=== PATIENT | male | born 2000 | race Caucasian/White ===

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

== ENCOUNTER 2019-05-03 15:33 | Emergency (ER) | payer BC ==
[2019-05-03 15:40] VITALS: TEMP 98.3
[2019-05-03] MEDS ORDERED: ALBUTEROL NEBULIZED 2.5 MG/3 ML INHALATION STA (15:53)
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
[2019-05-03 16:52] VITALS: RESP 20
[2019-05-03 16:53] VITALS: BP 122/74; PULSE 80
== END 2019-05-03 16:55 | disposition home or self-care (01) ==
LOC: EC 15:33
DX: J18.9 Pneumonia, unspecified organism (principal); F17.200 Nicotine dependence, unspecified, uncomplicated
CPT/HCPCS: 71046; 94640; 99283; 99406